=== PATIENT | female | born 1940 | race Two or more races ===

== ENCOUNTER → 2019-10-22 | Outpatient (CLI) | payer MEDICARE, BC ==
[~2019-10-22] MED LIST: ATOR10TA69 PO
== END | disposition home or self-care (01) ==
LOC: LAB 13:37
PROVIDERS: ATTEND Ophthalmology
DX: Z01.818 Encounter for other preprocedural examination (principal); Z11.59 Encounter for screening for other viral diseases
CPT/HCPCS: C9803; U0003

== ENCOUNTER → 2019-10-26 | Day surgery (SDC) | payer MEDICARE, BC ==
[~2019-10-26] VITALS: Ht 167.6 cm; Wt 68.9 kg
[~2019-10-26] MED LIST changes: +BALANCED SALT IRRIG SOLN COMB1 500ML OP SCH; +CYCLOPENTOLATE HCL 1% OPHTH DROPS 2ML RIGHTEYE NR; +LACTATED RINGERS 1,000 ML IV SCH; +PHENYLEPHRINE HCL 10% OPHTH DROPS 5ML RIGHTEYE NR; +TROPICAMIDE 1% OPHTH DROPS 15ML RIGHTEYE NR
== END | disposition home or self-care (01) ==
LOC: EDUNIT# 08:00 → OR 08:32
PROVIDERS: ATTEND Ophthalmology
DX: Z53.8 Procedure and treatment not carried out for other reasons (principal); Z79.899 Other long term (current) drug therapy
CPT/HCPCS: 36415; 84132